=== PATIENT | female | born 1995 | race Two or more races ===

== ENCOUNTER 2019-02-20 12:36 | Emergency (ER) | payer OTHER ==
[~2019-02-20] VITALS: Ht 162.6 cm; Wt 50.8 kg
[2019-02-20 13:00] VITALS: BP 106/62
--- NOTE | 2019-02-20 13:00 | NUR ---
ED Nurse Note: Patient walked in to ER from home due to abdominal pain for 2 days. per pt, she is 2 months . Patient alert and oriented x4 and ambulatory. Calm and cooperative. Skin clean and intact. No cardiac or acute distress noted at this time.
--- NOTE | 2019-02-20 13:25 | NUR ---
ED Nurse Note: pt ambulated to US in stable condition.
--- NOTE | 2019-02-20 13:25 | Emergency Room Report ---
History of Present Illness General Chief Complaint: Abdominal Pain Source: Patient Present Illness HPI 23 YO Female presents to the ED c/o 10/12 in severity lower abdominal pain that is constant in nature at approx 10wks . Pt. has not had US confirming IUP. Pt. is . She reports urinary frequency and urgency she denies dysuria or hematuria. Patient reports nausea but denies vomiting. Patient reports normal bowel movements. She denies constipation or diarrhea. Patient denies fevers or chills. Patient denies trauma or fall. Patient denies vaginal discharge/vaginal bleeding. She denies significant past medical history and states she is currently only taking vitamins. No other aggravating or relieving factors at this time. She denies chest pain, palpitations, shortness of breath or sudden onset of a headache. Allergies: Coded Allergies: No Known Allergies (Unverified , 02/20/19) Patient History Past Medical History: see triage record Past Surgical History: none Pertinent Family History: none Now: Yes - 2 MONTHS : 1 Para: 0 Reviewed Nursing Documentation: PMH: Agreed; PSxH: Agreed Nursing Documentation-PMH Past Medical History: No Stated History Review of Systems All Other Systems: negative except mentioned in HPI Physical Exam Vital Signs Date Time Temp Pulse Resp B/P (MAP) Pulse Ox O2 Delivery O2 Flow Rate FiO2 02/20/19 12:45 98.6 70 16 106/62 (77) 96 Room Air Sp02 EP Interpretation: reviewed, normal General Appearance: no apparent distress, alert, GCS 15, non-toxic Head: normocephalic, atraumatic Eyes: bilateral eye normal inspection, bilateral eye PERRL ENT: hearing grossly normal, normal voice Neck: full range of motion Respiratory: lungs clear, normal breath sounds, speaking full sentences Cardiovascular #1: regular rate, rhythm Gastrointestinal: normal bowel sounds, soft, non-distended, no guarding, tenderness - midline Lower abdomen. Genitourinary: normal inspection, no CVA tenderness Musculoskeletal: gait/station normal, normal range of motion Neurologic: alert, oriented x3, responsive, motor strength/tone normal, sensory intact, speech normal, grossly normal Psychiatric: judgement/insight normal Lymphatic: no adenopathy Medical Decision Making PA Attestation Dr. Romero is my supervising Physician whom patient management has been discussed with. Diagnostic Impression: Primary Impression: Abdominal pain during Qualified Codes: O26.891 - Other specified related conditions, first trimester; R10.9 - Unspecified abdominal pain ER Course 23 YO Female presents to the ED c/o 10/12 in severity lower abdominal pain that is constant in nature at approx 10wks . Pt. has not had US confirming IUP. Pt. is . She reports urinary frequency and urgency she denies dysuria or hematuria. Patient reports nausea but denies vomiting. Patient reports normal bowel movements. She denies constipation or diarrhea. Patient denies fevers or chills. Patient denies trauma or fall. Patient denies vaginal discharge/vaginal bleeding. She denies significant past medical history and states she is currently only taking vitamins. No other aggravating or relieving factors at this time. She denies chest pain, palpitations, shortness of breath or sudden onset of a headache. Ddx considered but are not limited to: IUP, [place] contractions, UTI, fibroid, ectopic , Spontaneous , Vital signs: are WNL, pt. is afebrile H&PE are most consistent with: abdominal pain in early , no evidence of acute abdomen on physical exam. ORDERS: -CBC: WNL -CMP:WNL -Lipase:WNL -UA: WNL -serum Hcg Quant: 20798 - Blood/RH type and screen- see attached labs -Pelvic US complete- normal intrauterine estimated at 8 weeks and 6 days gestation, HR of 168. ED INTERVENTIONS: -Tylenol PO DISCHARGE: At this time pt. is stable for d/c to home. Will provide printed patient care instructions, and any necessary prescriptions. Care plan and follow up instructions have been discussed with the patient prior to discharge. Labs Test 02/20/19 13:00 White Blood Count 9.2 K/UL (4.8-10.8) Red Blood Count 4.01 M/UL (4.20-5.40) Hemoglobin 12.4 G/DL (12.0-16.0) Hematocrit 36.8 % (37.0-47.0) Mean Corpuscular Volume 92 FL (80-99) Mean Corpuscular Hemoglobin 30.8 PG (27.0-31.0) Mean Corpuscular Hemoglobin Concent 33.6 G/DL (32.0-36.0) Red Cell Distribution Width 11.2 % (11.6-14.8) Platelet Count 182 K/UL (150-450) Mean Platelet Volume 7.2 FL (6.5-10.1) Neutrophils (%) (Auto) 72.5 % (45.0-75.0) Lymphocytes (%) (Auto) 19.3 % (20.0-45.0) Monocytes (%) (Auto) 7.1 % (1.0-10.0) Eosinophils (%) (Auto) 0.2 % (0.0-3.0) Basophils (%) (Auto) 0.9 % (0.0-2.0) Urine Color Yellow Urine Appearance Clear Urine pH 6.5 (4.5-8.0) Urine Specific [place] 1.020 (1.005-1.035) Urine Protein Negative (NEGATIVE) Urine Glucose (UA) Negative (NEGATIVE) Urine Ketones Negative (NEGATIVE) Urine Blood Negative (NEGATIVE) Urine Nitrite Negative (NEGATIVE) Urine Bilirubin Negative (NEGATIVE) Urine Urobilinogen Normal MG/DL (0.0-1.0) Urine Leukocyte Esterase 1+ (NEGATIVE) Urine RBC 0 /HPF (0 - 2) Urine WBC 0-2 /HPF (0 - 2) Urine Squamous Epithelial Cells Few /LPF (NONE/OCC) Urine Bacteria Few /HPF (NONE) Sodium Level 138 MMOL/L (136-145) Potassium Level 4.8 MMOL/L (3.5-5.1) Chloride Level 103 MMOL/L (98-107) Carbon Dioxide Level 30 MMOL/L (21-32) Anion Gap 5 mmol/L (5-15) Blood Urea Nitrogen 7 mg/dL (7-18) Creatinine 0.3 MG/DL (0.55-1.30) Estimat Glomerular Filtration Rate > 60 mL/min (>60) Glucose Level 89 MG/DL (74-106) Calcium Level 8.7 MG/DL (8.5-10.1) Total Bilirubin 0.2 MG/DL (0.2-1.0) Aspartate Amino Transf (AST/SGOT) 14 U/L (15-37) Alanine Aminotransferase (ALT/SGPT) 18 U/L (12-78) Alkaline Phosphatase 53 U/L (46-116) Total Protein 7.0 G/DL (6.4-8.2) Albumin 3.6 G/DL (3.4-5.0) Globulin 3.4 g/dL Albumin/Globulin Ratio 1.1 (1.0-2.7) Lipase 131 U/L (73-393) Human Chorionic Gonadotropin, Quant 91623 mIU/mL (1-6) CT/MRI/US Diagnostic Results CT/MRI/US Diagnostic Results : Imaging Test Ordered: US OB Impression 8 weeks and 6days gestation, HR or 168, ovaries are WNL Last Vital Signs Date Time Temp Pulse Resp B/P (MAP) Pulse Ox O2 Delivery O2 Flow Rate FiO2 02/20/19 12:45 98.6 70 16 106/62 (77) 96 Room Air Disposition: HOME, SELF-CARE Condition: Stable Scripts Acetaminophen* (TYLENOL EXTRA STRENGTH*) 500 Mg Tablet 500 MG ORAL Q6H, #30 TAB 0 Refills Prov: Rosalva Carr 02/20/19 Patient Instructions: Abdominal Pain, Adult Additional Instructions: Take medications as directed. Follow up with a OBGYN within 3 days, even if your symptoms have resolved. Return sooner to ED if new symptoms occur, or current symptoms become worse. - Please note that this Emergency Department Report was dictated using [employer] teacher technology software, occasionally this can lead to erroneous entry secondary to interpretation by the dictation equipment. Rosalva Carr Feb 20, 2019 13:25
[2019-02-20 13:37] LABS: APPEARANCE,URINE CLEAR; BILIRUBIN, URINE NEGATIVE (NEGATIVE); GLUCOSE, URINE (UA) NEGATIVE (NEGATIVE); KETONES,URINE NEGATIVE (NEGATIVE); LEUKOCYTE ESTERASE ,URINE 1+ (NEGATIVE); NITRITE,URINE NEGATIVE (NEGATIVE); PH,URINE 6.5 (4.5-8.0); PROTEIN,URINE NEGATIVE (NEGATIVE); UROBILINOGEN,URINE NORMAL MG/DL (0.0-1.0)
[2019-02-20 13:40] LABS: BASOPHILS % (AUTO) 0.9 % (0.0-2.0); EOSINOPHILS % (AUTO) 0.2 % (0.0-3.0); HEMATOCRIT 36.8 % (37.0-47.0); HEMOGLOBIN 12.4 G/DL (12.0-16.0); LYMPHOCYTES % (AUTO) 19.3 % (20.0-45.0); MEAN CORPUSCULAR VOLUME 92 FL (80-99); MONOCYTES % (AUTO) 7.1 % (1.0-10.0); NEUTROPHILS % (AUTO) 72.5 % (45.0-75.0); PLATELET COUNT 182 K/UL (150-450); RED BLOOD COUNT 4.01 M/UL (4.20-5.40); RED CELL DISTRIBUTION WIDTH 11.2 % (11.6-14.8); WHITE BLOOD COUNT 9.2 K/UL (4.8-10.8)
[2019-02-20 13:44] LABS: ANION GAP 5 mmol/L (5-15); BLOOD UREA NITROGEN 7 mg/dL (7-18); CALCIUM 8.7 MG/DL (8.5-10.1); CARBON DIOXIDE 30 MMOL/L (21-32); CHLORIDE 103 MMOL/L (98-107); CREATININE 0.3 MG/DL (0.55-1.30); POTASSIUM 4.8 MMOL/L (3.5-5.1); SODIUM 138 MMOL/L (136-145)
[2019-02-20 13:48] LABS: COLOR,URINE YELLOW
[2019-02-20 13:56] LABS: ALANINE AMINOTRANSFERASE 18 U/L (12-78); ALBUMIN 3.6 G/DL (3.4-5.0); ALBUMIN/GLOBULIN RATIO 1.1 (1.0-2.7); ALKALINE PHOSPHATASE 53 U/L (46-116); ASPARTATE AMINO TRANSFERASE 14 U/L (15-37); BILIRUBIN,TOTAL 0.2 MG/DL (0.2-1.0)
--- NOTE | 2019-02-20 14:04 | NUR ---
ED Nurse Note: pt came back from US in stable condition.
--- NOTE | 2019-02-20 14:28 | Diagnostic Imaging Report ---
Indication: Pelvic pain, positive test Technique: Transabdominal images only of the pelvis. No transvaginal images, per patient request. Doppler interrogation of the ovaries Comparison: none Findings: Uterus measures 8.2 cm length by 6.4 cm AP. Within the endometrium, there is a gestational sac. This demonstrates a pole with a crown-rump length of 22 mm, corresponding to an estimated gestational age of 8 weeks 6 days. There is positive heart activity, heart rate 168 bpm. There is no evidence of subchorionic hemorrhage. Normal myometrium. Right ovary measures 3 cm in length. The left ovary measures 3.6 cm in length. Both ovaries demonstrate normal flow on Doppler interrogation. There is no free cul-de-sac fluid Impression: 8 weeks 6 day, by crown-rump length measurement, single live intrauterine . No unusual features
--- NOTE | 2019-02-20 14:44 | NUR ---
ED Nurse Note: ERPA at bedside explaining US results to pt and the significant other.
[2019-02-20] MEDS ORDERED: TYLENOL EXTRA500 MG ORAL (14:48)
[2019-02-20 15:20] VITALS: BP 120/83
--- NOTE | 2019-02-20 15:21 | NUR ---
ED Nurse Note: Pt cleared by health care Provider for discharge. lab results were printed out and provided to pt. DC instructions/prescription was given and explained to pt and significant other and verbalized understanding of teachings. All medical deviecs such as ID band removed. Pt is AAO x4, ambulatory and left with all personal belongings.
== END 2019-02-20 15:22 | disposition home or self-care (01) ==
LOC: EMR 13:06
DX: O26.891 Other specified pregnancy related conditions, first trimester (principal); R10.30 Lower abdominal pain, unspecified; Z3A.08 8 weeks gestation of pregnancy
CPT/HCPCS: 36415; 76801; 76830; 80053; 81003; 83690; 84702; 85025; Z7502; 99284

== ENCOUNTER 2019-08-22 19:59 | Emergency (ER) | payer OTHER ==
[~2019-08-22] VITALS: Ht 157.5 cm; Wt 68.0 kg
[~2019-08-22 19:59] MED LIST: TYLENOL EXTRA500 MG ORAL
--- NOTE | 2019-08-22 20:23 | Emergency Room Report ---
History of Present Illness General Chief Complaint: labor Source: Patient Present Illness HPI Patient is a 24-year-old female G1, P0 approximately 35 weeks by dates. EDC September 25. Denies prior care. Presents after increased leakage of fluid approximately 1 hour. Patient had onset of contractions yesterday. Allergies: Coded Allergies: No Known Allergies (Unverified , 02/20/19) Patient History Past Medical History: none Reviewed Nursing Documentation: PMH: Agreed; PSxH: Agreed Review of Systems All Other Systems: negative except mentioned in HPI Physical Exam General Appearance: alert, GCS 15, moderate distress Neck: full range of motion Respiratory: lungs clear, normal breath sounds Cardiovascular #1: normal peripheral pulses, regular rate, rhythm, no edema Gastrointestinal: normal bowel sounds, non tender, soft Genitourinary: other - Blood at perineum with of the head Musculoskeletal: decreased range of motion Neurologic: alert, motor strength/tone normal, meat seafood associate III-XII nml as tested, oriented x3 Skin: no rash Medical Decision Making Diagnostic Impression: Primary Impression: Premature labor Additional Impression: Delivery outcome of liveborn ER Course Patient presented for premature labor. Differential diagnosis include was not limited to premature labor, among others. Patient was noted to have recent rupture of membranes and was noted to have on initial pelvic exam. Patient was started on IV fluids. Patient delivered a male infant. Baby was suctioned on perineum was awake set 5 pounds 8 ounces. Approximately 35 weeks gestation. Baby was placed on a warmer. Patient was delivered at approximate 20:18. 9/9. Cord was clamped. Baby was placed in a warmer.Patient was started on Pitocin and Intact placenta was delivered. sent for pathology. Patient will be transferred for higher level of care due to no OB services at this facility. [facility] was contacted for transfer for higher level of care.patient was discussed with by Corey. Status: improved Disposition: SHORT-TERM HOSP Condition: Stable Porter Hawkins MD August 22, 2019 20:23
[2019-08-22 20:30] VITALS: BP 158/108
--- NOTE | 2019-08-22 20:30 | NUR ---
Nurse Note: Pt brought in by ambulance 68 from home c/o abd cramping and vaginal discharge worsing 08/21. Per , pt is 35weeks ; first pregancy, . care taken during and has been attending regular appointments. Baby delivered on 2017. Clear amniotic fluid, strong baby cry, pink on inspection, all extremities strong in tone.
[2019-08-22 20:50] VITALS: BP 147/90
--- NOTE | 2019-08-22 21:00 | NUR ---
Nurse Note: Pt delivered placenta at 2049. Upon inital inspection, placenta intact. MD at bedside and delivered placenta.
[2019-08-22 21:16] VITALS: BP 151/93
--- NOTE | 2019-08-22 21:50 | NUR ---
Nurse Note: Spoke to BRAULIO Rosen for report.
--- NOTE | 2019-08-22 21:52 | NUR ---
Nurse Note: Pt left with placenta specimen.
[2019-08-22 22:00] VITALS: BP 152/88
--- NOTE | 2019-08-22 22:00 | NUR ---
TRANSFER patient is transferred to [facility] accompanied by baby boy and . patient is in stable condition and is to be transferred via [facility]. patient has taken all belongings. patient in no distress at this time.
== END 2019-08-22 22:00 | disposition short-term general hospital (02) ==
LOC: EMR 20:37
DX: O60.14X0 Preterm labor third trimester with preterm delivery third trimester, not applicable or unspecified (principal); Z3A.35 35 weeks gestation of pregnancy; Z37.0 Single live birth
CPT/HCPCS: 59409; 96365; J2590; J7030; Z7502; 99291